=== PATIENT | male | born 1970 | race Caucasian/White ===

== ENCOUNTER 2018-12-03 06:12 | Outpatient (CLI) | payer BC ==
[~2018-12-03] VITALS: Ht 177.8 cm; Wt 81.2 kg
[2018-12-03] MEDS ORDERED: SILD100T PO (14:24)
[2018-12-03] MEDS ORDERED: COLE625T14 PO (14:24)
[2018-12-03] MEDS ORDERED: METF-399 PO (14:24)
[2018-12-03] MEDS ORDERED: LOSA25TA6 PO (14:24)
== END 2018-12-03 14:29 | disposition home or self-care (01) ==
LOC: PREOP 06:12 → EDUNIT# 12:30 → PREOP 14:29
PROVIDERS: ATTEND Surgery
DX: Z01.818 Encounter for other preprocedural examination (principal)

== ENCOUNTER 2018-12-06 06:09 | Day surgery (SDC) | payer BC ==
[~2018-12-06] VITALS: Ht 177.8 cm; Wt 81.2 kg
[~2018-12-06 06:09] MED LIST: COLE625T14 PO; LOSA25TA6 PO; METF-399 PO; SILD100T PO
--- OUTSIDE RECORDS SUMMARY | 2018-12-06 06:12 | XMS REPORT | CCD ---
Author Author Rosemary Rider Organization Rosemary Rider MD, [facility] Address [address] [place] [address] Phone Care Team Providers Care Assistant Professor Of Geography Name Role Phone PP Unavailable CCM Unavailable Summary Purpose Interface Exchange Insurance Providers Payer name Policy type / Coverage type Covered constitution party ID Effective Begin Date Effective End Date Blue Cross Blue [facility] Blue [employer] [facility] [id number] 2017 Unknown Family history Grandmother Diagnosis Age At Onset Diabetes mellitus Type 2 Unknown Brother Diagnosis Age At Onset No Known Diseases N/A Father Diagnosis Age At Onset Arthritis Unknown Mother Diagnosis Age At Onset Hypertension Unknown Diabetes mellitus Type 2 Unknown Social History Social History Element Codes Description Effective Dates Marital status Unknown Maria Alejandra 08/09/2018 Number of children Unknown 3 08/09/2018 Employment Unknown Currently employed Campus Safety Officer in [employer] 08/09/[address]: 361232699 Never smoker 08/09/[address]: 032466 Currently drinks alcohol 08/09/2018 Allergies, Adverse Reactions, Alerts Substance Reaction Codes Entered Date Inactivated Date Status NO KNOWN DRUG ALLERGIES Unknown 08/09/2018 No Inactive Date Active Past Medical History Illness Codes Condition Status Onset Date Resolved Date Male erectile disorder ICD-9: 302.72 ICD-10: F52.21 Active 08/09/2018 Unknown Sebaceous cyst ICD-9: 706.2 ICD-10: L72.3 Active 10/25/2018 Unknown Type 2 diabetes mellitus with hyperglycemia ICD-9: 250.02 ICD-10: E11.65 Active 09/13/2018 Unknown Encounter for general adult medical examination with abnormal findings ICD-9: V70.0 ICD-10: Z00.01 Active 08/09/2018 Unknown Impaired fasting glucose ICD-9: 790.29 ICD-10: R73.01 Active 08/09/2018 Unknown Problems Condition Codes Effective Dates Condition Status Male erectile disorder ICD-9: 302.72 ICD-10: F52.21 08/09/2018 Active Sebaceous cyst ICD-9: 706.2 ICD-10: L72.3 10/25/2018 Active Type 2 diabetes mellitus with hyperglycemia ICD-9: 250.02 ICD-10: E11.65 09/13/2018 Active Encounter for general adult medical examination with abnormal findings ICD-9: V70.0 ICD-10: Z00.01 08/09/2018 Active Impaired fasting glucose ICD-9: 790.29 ICD-10: R73.01 08/09/2018 Active Medications Medication Codes Instructions Start Date Stop Date Status Fill Instructions tadalafil 2.5 mg tablet RxNorm: 851443 1 Tablet(s) PO QAM 10/2510/25/2018 Inactive losartan 25 mg tablet RxNorm: 429303 1 Tablet(s) PO daily 201701/17/2020 Active sildenafil 100 mg tablet RxNorm: 865108 1/2-1 Tablet(s) PO UD prior to planned event 10/25/2018 11/23/2018 Active Ozempic 0.25 mg or 0.5 mg (2 mg/1.5 mL) subcutaneous pen injector RxNorm: 1061984 0.5 Milligram(s) SQ QW 10/25/20182018 Active metformin 1,000 mg tablet RxNorm: 793530 1/2 Tablet(s) PO BID x 1 week then increase to 1 Tablet PO BID thereafter 10/25/2018 10/19/2019 Active sildenafil 100 mg tablet RxNorm: 816032 1/2-1 Tablet(s) PO UD prior to planned event 10/25/2018 10/24/2018 Inactive Ozempic 0.25 mg or 0.5 mg (2 mg/1.5 mL) subcutaneous pen injector RxNorm: 4328221 0.25 Milligram(s) SQ QW 09/13/201810/24 Inactive WelChol 625 mg tablet RxNorm: 076993 3 Tablet(s) PO BID 201712/13/2018 Active losartan 25 mg tablet RxNorm: 195375 1 Tablet(s) PO daily 201708/15/2018 Inactive metformin 1,000 mg tablet RxNorm: 615226 1/2 Tablet(s) PO BID x 1 week then increase to 1 Tablet PO BID thereafter 08/16/2018 08/15/2018 Inactive losartan 25 mg tablet RxNorm: 267355 1 Tablet(s) PO daily 201710/24/2018 Inactive WelChol 625 mg tablet RxNorm: 750678 3 Tablet(s) PO BID 201708/15/2018 Inactive metformin 1,000 mg tablet RxNorm: 767190 1/2 Tablet(s) PO BID x 1 week then increase to 1 Tablet PO BID thereafter 08/16/2018 10/24/2018 Inactive Medication Administered No Medication Administered data Immunizations No Immunization data Assessments Condition Codes Effective Dates Type 2 diabetes mellitus with hyperglycemia ICD-10: E11.65 ICD-9: 250.02 10/25/2018 Male erectile disorder ICD-10: F52.21 ICD-9: 302.72 10/25/2018 Sebaceous cyst ICD-10: L72.3 ICD-9: 706.2 10/25/2018 Encounter for general adult medical examination with abnormal findings ICD-10: Z00.01 ICD-9: V70.0 08/09/2018 Impaired fasting glucose ICD-10: R73.01 ICD-9: 790.29 08/09/2018 Reason For Visit Reason For Visit Effective Dates Notes hypertension 10/25/2018 hypertension 09/13/2018 hypertension 08/09/2018 Results Observation Observation Code Item Item Code Result Date Testosterone Free Direct 946650 FREE TESTOSTERONE 10.0 pg/mL 08/15/2018 %Hba1C Obq331 % HbA1c 41361-1 13.8 % 08/10/2018 %Hba1C Ref946 Gluc Ave 349 mg/dL 08/10/2018 Cbc With Differential Ord2 WBC 6.36 K/ul 08/10/2018 Cbc With Differential Ord2 RBC 5.69 M/ul 08/10/2018 Cbc With Differential Ord2 HGB 17.0 g/dl 08/10/2018 Cbc With Differential Ord2 HCT 46.2 % 08/10/2018 Cbc With Differential Ord2 Neut% 48.6 % 08/10/2018 Cbc With Differential Ord2 MCV 81.2 fl 08/10/2018 Cbc With Differential Ord2 Lymph% 36.5 % 08/10/2018 Cbc With Differential Ord2 MCH 29.9 pg 08/10/2018 Cbc With Differential Ord2 Garrett% 11.0 % 08/10/2018 Cbc With Differential Ord2 MCHC 36.8 pg 08/10/2018 Cbc With Differential Ord2 Eos% 3.3 % 08/10/2018 Cbc With Differential Ord2 PLT 266 K/ul 08/10/2018 Cbc With Differential Ord2 Baso% 0.6 % 08/10/2018 Cbc With Differential Ord2 RDW 13.0 % 08/10/2018 Cbc With Differential Ord2 Neut ABS# 3.09 K/ul 08/10/2018 Cbc With Differential Ord2 Lymph ABS# 2.32 K/ul 08/10/2018 Cbc With Differential Ord2 Garrett ABS# 0.7 K/ul 08/10/2018 Cbc With Differential Ord2 Eos ABS# 0.2 K/ul 08/10/2018 Cbc With Differential Ord2 Baso ABS# 0.0 K/ul 08/10/2018 Microalbumin Cwb492 MicroAlb <0.7 mg/dL 08/10/2018 Lipid Ord30 CHOL 194 mg/dL 08/10/2018 Lipid Ord30 HDL 31.0 mg/dl 08/10/2018 Lipid Ord30 TRIG 292 mg/dL 08/10/2018 Lipid Ord30 LDL 105 mg/dL 08/10/2018 Lipid Ord30 C/HDL 6.3 Ratio 08/10/2018 Comp Metabolic Fvv915 NA 133 mEq/L 08/10/2018 Comp Metabolic Zkv632 K 4.3 mEq/L 08/10/2018 Comp Metabolic Ikl638 CL 99 mEq/L 08/10/2018 Comp Metabolic Lyp156 CO2 27.0 mEq/L 08/10/2018 Comp Metabolic Pnb659 ANION GAP 11 08/10/2018 Comp Metabolic Zvb491 GLUCOSE 363 mg/dL 08/10/2018 Comp Metabolic Bwo594 Creat 1.0 mg/dL 08/10/2018 Comp Metabolic Zck293 eGFR 91 ml/min/1.73m2 08/10/2018 Comp Metabolic Afv695 BUN 11 mg/dL 08/10/2018 Comp Metabolic Lts156 B/C Ratio 11.6 Ratio 08/10/2018 Comp Metabolic Yvd194 CALCIUM 9.3 mg/dL 08/10/2018 Comp Metabolic Jgv444 ALK PHOS 63 U/L 08/10/2018 Comp Metabolic Hmg682 AST(SGOT) 22 U/L 08/10/2018 Comp Metabolic Rpb423 ALT(SGPT) 23 U/L 08/10/2018 Comp Metabolic Kyr460 BILI T 1.2 mg/dL 08/10/2018 Comp Metabolic Zai724 ALBUMIN 4.3 g/dL 08/10/2018 Comp Metabolic Bdy300 TPRO 6.9 g/dL 08/10/2018 Comp Metabolic Klz210 GLOB 2.6 g/dL 08/10/2018 Comp Metabolic Gip244 A/G Ratio 1.6 Ratio 08/10/2018 Comp Metabolic Jox383 Osmo 280 mOsmo 08/10/2018 Tsh Ord6 TSH (3rd IS) 1.61 uIU/mL 08/10/2018 Review of Systems System Result Effective Dates Constitutional weight loss 10/25/2018 Gastrointestinal No constipation 2017 Gastrointestinal No diarrhea 10/25/2018 Constitutional No recent illness 2017 Constitutional No chills 10/25/2018 Constitutional No fatigue 10/25/2018 Constitutional No fever 10/25/2018 Constitutional No insomnia 10/25/2018 Constitutional No malaise 10/25/2018 Ears/Nose/Throat/Neck No dizziness 2017 Ears/Nose/Throat/Neck No headache 2017 Ears/Nose/Throat/Neck No hearing loss 04/2018 Cardiovascular No dyspnea 10/25/2018 Cardiovascular No edema 10/25/2018 Cardiovascular No fatigue 10/25/2018 Respiratory No chest tightness 2017 Respiratory No cough 10/25/2018 Respiratory No dyspnea 10/25/2018 Respiratory No pedal edema 10/25/2018 Gastrointestinal No abdominal pain 2017 Gastrointestinal No gastroesophageal reflux 10/25/2018 Gastrointestinal No nausea 10/25/2018 Gastrointestinal No vomiting 10/25/2018 Genitourinary/Nephrology No dysuria 10/25 Genitourinary/Nephrology No nocturia 04/2018 Genitourinary/Nephrology No urinary incontinence 10/25/2018 Dermatologic No rash 10/25/2018 Dermatologic No sores 10/25/2018 Neurologic No dizziness 10/25/2018 Neurologic No headache 10/25/2018 Neurologic No syncope 10/25/2018 Psychiatric No anxiety 10/25/2018 Psychiatric No depression 10/25/2018 Genitourinary/Nephrology impotence 2017 Constitutional No recent illness 2017 Constitutional No chills 09/13/2018 Constitutional No fatigue 09/13/2018 Constitutional No fever 09/13/2018 Constitutional No insomnia 09/13/2018 Constitutional No malaise 09/13/2018 Ears/Nose/Throat/Neck No dizziness 2017 Ears/Nose/Throat/Neck No headache 2017 Ears/Nose/Throat/Neck No hearing loss Cardiovascular No dyspnea 09/13/2018 Cardiovascular No edema 09/13/2018 Cardiovascular No fatigue 09/13/2018 Respiratory No chest tightness 2017 Respiratory No cough 09/13/2018 Respiratory No dyspnea 09/13/2018 Respiratory No pedal edema 09/13/2018 Gastrointestinal No abdominal pain 2017 Gastrointestinal No constipation 2017 Gastrointestinal No diarrhea 09/13/2018 Gastrointestinal No gastroesophageal reflux 09/13/2018 Gastrointestinal No nausea 09/13/2018 Gastrointestinal No vomiting 09/13/2018 Genitourinary/Nephrology No dysuria 09/13 Genitourinary/Nephrology No nocturia Genitourinary/Nephrology No urinary incontinence 09/13/2018 Dermatologic No rash 09/13/2018 Dermatologic No sores 09/13/2018 Neurologic No dizziness 09/13/2018 Neurologic No headache 09/13/2018 Neurologic No syncope 09/13/2018 Psychiatric No anxiety 09/13/2018 Psychiatric No depression 09/13/2018 Constitutional No recent illness 2017 Constitutional No chills 08/09/2018 Constitutional No fatigue 08/09/2018 Constitutional No fever 08/09/2018 Constitutional No insomnia 08/09/2018 Constitutional No malaise 08/09/2018 Eyes No vision change 08/09/2018 Ears/Nose/Throat/Neck No dental pain Ears/Nose/Throat/Neck No dizziness 2017 Ears/Nose/Throat/Neck No dysphagia 2017 Ears/Nose/Throat/Neck No headache 2017 Ears/Nose/Throat/Neck No hearing loss Ears/Nose/Throat/Neck No nasal allergies 08/09/2018 Ears/Nose/Throat/Neck No sore throat Ears/Nose/Throat/Neck No postnasal drip 08/09/2018 Ears/Nose/Throat/Neck No sinus congestion 08/09/2018 Cardiovascular No chest pain/pressure Cardiovascular No dyspnea 08/09/2018 Cardiovascular No edema 08/09/2018 Cardiovascular No exercise intolerance Cardiovascular No fatigue 08/09/2018 Cardiovascular No near-syncope/dizziness 08/09/2018 Respiratory No chest tightness 2017 Respiratory No cough 08/09/2018 Respiratory No dyspnea 08/09/2018 Respiratory No pedal edema 08/09/2018 Gastrointestinal No abdominal pain 2017 Gastrointestinal No constipation 2017 Gastrointestinal No diarrhea 08/09/2018 Gastrointestinal No gastroesophageal reflux 08/09/2018 Gastrointestinal No nausea 08/09/2018 Gastrointestinal No vomiting 08/09/2018 Genitourinary/Nephrology No dysuria 08/09 Genitourinary/Nephrology No nocturia Genitourinary/Nephrology No urinary incontinence 08/09/2018 Musculoskeletal No stiffness 08/09/2018 Musculoskeletal No swelling 08/09/2018 Musculoskeletal No muscle weakness 2017 Musculoskeletal No myalgias 08/09/2018 Dermatologic No rash 08/09/2018 Dermatologic No sores 08/09/2018 Neurologic No dizziness 08/09/2018 Neurologic No headache 08/09/2018 Neurologic No neck pain 08/09/2018 Neurologic No syncope 08/09/2018 Psychiatric No anxiety 08/09/2018 Psychiatric No depression 08/09/2018 Physical Exam Exam Name System Name Item Name Status Result Effective Dates Notes Full Exam - General 1994 Constitutional general appearance Development: well developed 10/25/2018 None Full Exam - General 1994 Constitutional general appearance Development: appears stated age 1210/25/2018 None Full Exam - General 1994 Constitutional general appearance Hygiene/Attention to Grooming: good hygiene 10/25/2018 None Full Exam - General 1994 Eyes conjunctiva /eyelids Overall: conjunctiva clear 10/25/2018 None Full Exam - General 1994 Eyes conjunctiva /eyelids Overall: cornea clear 10/25/2018 None Full Exam - General 1994 Eyes conjunctiva /eyelids Overall: eyelids normal 10/25/2018 None Full Exam - General 1994 Eyes pupils and irises Overall: pupils equal, round, reactive to light and accomodation 10/25/2018 None Full Exam - General 1994 Ears/Nose/Throat otoscopic exam Overall: external auditory canals clear 10/25/2018 None Full Exam - General 1994 Ears/Nose/Throat otoscopic exam Overall: tympanic membranes clear 10/25/2018 None Full Exam - General 1994 Ears/Nose/Throat lips/teeth/gingiva Overall: benign lips 10/25/2018 None Full Exam - General 1994 Ears/Nose/Throat lips/teeth/gingiva Overall: normal dentition 10/25/2018 None Full Exam - General 1994 Ears/Nose/Throat oral cavity/pharynx/larynx Overall: oral mucosa clear 10/25/2018 None Full Exam - General 1994 Ears/Nose/Throat oral cavity/pharynx/larynx Overall: oropharyngeal mucosa clear 10/25/2018 None Full Exam - General 1994 Ears/Nose/Throat oral cavity/pharynx/larynx Overall: hypopharynx benign 10/25/2018 None Full Exam - General 1994 Ears/Nose/Throat oral cavity/pharynx/larynx Overall: no masses 10/25/2018 None Full Exam - General 1994 Respiratory auscultation Overall: breath sounds clear bilaterally 10/25/2018 None Full Exam - General 1994 Respiratory respiratory effort/rhythm Overall: no retractions 10/25/2018 None Full Exam - General 1994 Respiratory respiratory effort/rhythm Overall: normal rate 10/25/2018 None Full Exam - General 1994 Cardiovascular extremities Overall: no clubbing 10/25/2018 None Full Exam - General 1994 Cardiovascular auscultation of heart Overall: regular rate 10/25/2018 None Full Exam - General 1994 Cardiovascular auscultation of heart Overall: normal heart sounds 10/25/2018 None Full Exam - General 1994 Musculoskeletal spine, ribs and pelvis Overall: good posture 10/25/2018 None Full Exam - General 1994 Musculoskeletal head and neck Overall: head atraumatic 10/25/2018 None Full Exam - General 1994 Musculoskeletal head and neck Overall: cervical spine benign 10/25/2018 None Full Exam - General 1994 Neurologic cranial nerves Overall: crainial nerves 2 - 12 grossly intact 10/25/2018 None Full Exam - General 1994 Psychiatric orientation/consciousness Overall: oriented to person, place and time 10/25/2018 None Full Exam - General 1994 Psychiatric mood and affect Overall: normal mood and affect 10/25/2018 None Full Exam - General 1994 Integument inspection of skin Location: scalp 10/25/2018 nodule on right side on top of head Full Exam - General 1994 Constitutional general appearance Development: well developed 09/13/2018 None Full Exam - General 1994 Constitutional general appearance Development: appears stated age 1009/13/2018 None Full Exam - General 1994 Constitutional general appearance Hygiene/Attention to Grooming: good hygiene 09/13/2018 None Full Exam - General 1994 Eyes conjunctiva /eyelids Overall: conjunctiva clear 09/13/2018 None Full Exam - General 1994 Eyes conjunctiva /eyelids Overall: cornea clear 09/13/2018 None Full Exam - General 1994 Eyes conjunctiva /eyelids Overall: eyelids normal 09/13/2018 None Full Exam - General 1994 Eyes pupils and irises Overall: pupils equal, round, reactive to light and accomodation 09/13/2018 None Full Exam - General 1994 Ears/Nose/Throat otoscopic exam Overall: external auditory canals clear 09/13/2018 None Full Exam - General 1994 Ears/Nose/Throat otoscopic exam Overall: tympanic membranes clear 09/13/2018 None Full Exam - General 1994 Ears/Nose/Throat lips/teeth/gingiva Overall: benign lips 09/13/2018 None Full Exam - General 1994 Ears/Nose/Throat lips/teeth/gingiva Overall: normal dentition 09/13/2018 None Full Exam - General 1994 Ears/Nose/Throat oral cavity/pharynx/larynx Overall: oral mucosa clear 09/13/2018 None Full Exam - General 1994 Ears/Nose/Throat oral cavity/pharynx/larynx Overall: oropharyngeal mucosa clear 09/13/2018 None Full Exam - General 1994 Ears/Nose/Throat oral cavity/pharynx/larynx Overall: hypopharynx benign 09/13/2018 None Full Exam - General 1994 Ears/Nose/Throat oral cavity/pharynx/larynx Overall: no masses 09/13/2018 None Full Exam - General 1994 Respiratory auscultation Overall: breath sounds clear bilaterally 09/13/2018 None Full Exam - General 1994 Respiratory respiratory effort/rhythm Overall: no retractions 09/13/2018 None Full Exam - General 1994 Respiratory respiratory effort/rhythm Overall: normal rate 09/13/2018 None Full Exam - General 1994 Cardiovascular extremities Overall: no clubbing 09/13/2018 None Full Exam - General 1994 Cardiovascular auscultation of heart Overall: regular rate 09/13/2018 None Full Exam - General 1994 Cardiovascular auscultation of heart Overall: normal heart sounds 09/13/2018 None Full Exam - General 1994 Musculoskeletal spine, ribs and pelvis Overall: good posture 09/13/2018 None Full Exam - General 1994 Musculoskeletal head and neck Overall: head atraumatic 09/13/2018 None Full Exam - General 1994 Musculoskeletal head and neck Overall: cervical spine benign 09/13/2018 None Full Exam - General 1994 Neurologic cranial nerves Overall: crainial nerves 2 - 12 grossly intact 09/13/2018 None Full Exam - General 1994 Psychiatric orientation/consciousness Overall: oriented to person, place and time 09/13/2018 None Full Exam - General 1994 Psychiatric mood and affect Overall: normal mood and affect 09/13/2018 None Full Exam - General 1994 Constitutional general appearance Development: well developed 08/09/2018 None Full Exam - General 1994 Constitutional general appearance Development: appears stated age 0908/09/2018 None Full Exam - General 1994 Constitutional general appearance Hygiene/Attention to Grooming: good hygiene 08/09/2018 None Full Exam - General 1994 Eyes conjunctiva /eyelids Overall: conjunctiva clear 08/09/2018 None Full Exam - General 1994 Eyes conjunctiva /eyelids Overall: cornea clear 08/09/2018 None Full Exam - General 1994 Eyes conjunctiva /eyelids Overall: eyelids normal 08/09/2018 None Full Exam - General 1994 Eyes pupils and irises Overall: pupils equal, round, reactive to light and accomodation 08/09/2018 None Full Exam - General 1994 Ears/Nose/Throat otoscopic exam Overall: external auditory canals clear 08/09/2018 None Full Exam - General 1994 Ears/Nose/Throat otoscopic exam Overall: tympanic membranes clear 08/09/2018 None Full Exam - General 1994 Ears/Nose/Throat lips/teeth/gingiva Overall: benign lips 08/09/2018 None Full Exam - General 1994 Ears/Nose/Throat lips/teeth/gingiva Overall: normal dentition 08/09/2018 None Full Exam - General 1994 Ears/Nose/Throat oral cavity/pharynx/larynx Overall: oral mucosa clear 08/09/2018 None Full Exam - General 1994 Ears/Nose/Throat oral cavity/pharynx/larynx Overall: oropharyngeal mucosa clear 08/09/2018 None Full Exam - General 1994 Ears/Nose/Throat oral cavity/pharynx/larynx Overall: hypopharynx benign 08/09/2018 None Full Exam - General 1994 Ears/Nose/Throat oral cavity/pharynx/larynx Overall: no masses 08/09/2018 None Full Exam - General 1994 Respiratory auscultation Overall: breath sounds clear bilaterally 08/09/2018 None Full Exam - General 1994 Respiratory respiratory effort/rhythm Overall: no retractions 08/09/2018 None Full Exam - General 1994 Respiratory respiratory effort/rhythm Overall: normal rate 08/09/2018 None Full Exam - General 1994 Cardiovascular extremities Overall: no clubbing 08/09/2018 None Full Exam - General 1994 Cardiovascular auscultation of heart Overall: regular rate 08/09/2018 None Full Exam - General 1994 Cardiovascular auscultation of heart Overall: normal heart sounds 08/09/2018 None Full Exam - General 1994 Abdomen abdominal exam Overall: no tenderness 08/09/2018 None Full Exam - General 1994 Abdomen abdominal exam Overall: normal bowel sounds 08/09/2018 None Full Exam - General 1994 Lymphatic neck nodes Overall: anterior cervical chain benign 08/09/2018 None Full Exam - General 1994 Lymphatic neck nodes Overall: posterior cervical chain benign 08/09/2018 None Full Exam - General 1994 Musculoskeletal spine, ribs and pelvis Overall: spine benign 08/09/2018 None Full Exam - General 1994 Musculoskeletal spine, ribs and pelvis Overall: sacroiliac joint benign 08/09/2018 None Full Exam - General 1994 Musculoskeletal spine, ribs and pelvis Overall: good posture 08/09/2018 None Full Exam - General 1994 Musculoskeletal head and neck Overall: head atraumatic 08/09/2018 None Full Exam - General 1994 Musculoskeletal head and neck Overall: cervical spine benign 08/09/2018 None Full Exam - General 1994 Integument inspection of skin Overall: few scattered moles, no gross abnormalities 08/09/2018 None Full Exam - General 1994 Neurologic deep tendon reflexes Overall: deep tendon reflexes intact 08/09/2018 None Full Exam - General 1994 Neurologic cranial nerves Overall: crainial nerves 2 - 12 grossly intact 08/09/2018 None Full Exam - General 1994 Psychiatric orientation/consciousness Overall: oriented to person, place and time 08/09/2018 None Full Exam - General 1994 Psychiatric mood and affect Overall: normal mood and affect 08/09/2018 None Full Exam - General 1994 Neurologic sensation Touch: (specify location of deficit): vibration no sensation on great toe on right, 10 seconds on left great toe, normal sensation at right medial malleoli, and 12 seconds on left medial malleoli, lateral on right is normal, left lateral is normal as well. 08/09/2018 None Full Exam - General 1994 Ears/Nose/Throat external ear Auricle: cosmetic deformity 08/09/2018 None Procedures No Procedures data Vital Signs Date Vital 10/25/2018 Blood Pressure 1: 126/74 Code : 8480-6 BMI: 25.1 Code : 64268-2 Heart Rate 1 : 79 bpm Height: 5'10" SpO2: 99% Weight: 175 lbs 09/13/2018 Blood Pressure 1: 138/76 Code : 8480-6 BMI: 26.3 Code : 60839-8 Heart Rate 1 : 90 bpm Height: 5'10" SpO2: 98% Weight: 183 lbs 08/09/2018 Blood Pressure 1: 132/84 Code : 8480-6 BMI: 25.3 Code : 53904-7 Heart Rate 1 : 94 bpm Height: 5'10" SpO2: 97% Weight: 176 lbs Functional Status No Functional Status data History of Present Illness Symptom Name Status Result Effective Date Notes Quality intermittent 10/25/2018 None Onset and Resolution sudden in onset 10/25/2018 None Onset of Symptom 1 years ago 10/25/2018 None Quality decreased libido 10/25/2018 None Onset and Resolution gradual in onset 10/25/2018 None Onset of Symptom 1 years ago 10/25/2018 None Onset of Symptom onset as an adult 10/25/2018 None Onset of Symptom 9 years ago 10/25/2018 None Nutrition regular diet 10/25/2018 None Pertinent Findings tingling 10/25/2018 in toes - sometimes burning up to his knees hypertension Quality intermittent 09/13/2018 None hypertension Onset and Resolution sudden in onset 09/13/2018 None hypertension Onset of Symptom 1 years ago 09/13/2018 None sexual dysfunction Quality decreased libido 09/13/2018 None sexual dysfunction Onset and Resolution gradual in onset 09/13/2018 None sexual dysfunction Onset of Symptom 1 years ago 09/13/2018 None diabetes mellitus Onset of Symptom onset as an adult 09/13/2018 None diabetes mellitus Onset of Symptom 9 years ago 09/13/2018 None diabetes mellitus Nutrition regular diet 09/13/2018 None diabetes mellitus Pertinent Findings tingling 09/13/2018 in toes - sometimes burning up to his knees hypertension Quality intermittent 08/09/2018 None hypertension Onset and Resolution sudden in onset 08/09/2018 None hypertension Onset of Symptom 1 years ago 08/09/2018 None sexual dysfunction Quality decreased libido 08/09/2018 None sexual dysfunction Onset of Symptom 1 years ago 08/09/2018 None sexual dysfunction Onset and Resolution gradual in onset 08/09/2018 None diabetes mellitus Onset of Symptom onset as an adult 08/09/2018 None diabetes mellitus Onset of Symptom 9 years ago 08/09/2018 None diabetes mellitus Nutrition regular diet 08/09/2018 None diabetes mellitus Exercise minimal exercise 08/09/2018 None diabetes mellitus Test results Pt checking blood glucose readings, did not bring results to clinic 08/09/2018 he states that it has been over 400 - a few months ago - most recently it has been around 150's when he really works to try to get his blood glucose controlled. diabetes mellitus Pertinent Findings tingling 08/09/2018 in toes - sometimes burning up to his knees Advance Directives No Advance Directive data Encounters Encounter Performer Location Codes Date ([id number]) 53356 EST. PATIENT, LEVEL IV Diagnosis: Type 2 diabetes mellitus with hyperglycemia[ICD10: E11.65] Diagnosis: Male erectile disorder[ICD10: F52.21] Diagnosis: Sebaceous cyst[ICD10: L72.3] Rosemary Rider MD, [facility] CPT- 4: 02636 10/25/2018 ([id number]) 03616 EST. PATIENT, LEVEL IV Diagnosis: Type 2 diabetes mellitus with hyperglycemia[ICD10: E11.65] Rosemary Rider MD , [facility] CPT-4: 84341 09/13/2018 ([id number]) PREV VISIT NEW AGE 40-64 Diagnosis: Encounter for general adult medical examination with abnormal findings[ICD10: Z00.01] Rosemary Rider MD, [facility] CPT-4: 12629 08/09/2018 Plan of Care Planned Activity Notes Codes Status Date Visit Plan: Diabetes Mellitus - improved control- per recent FSBS reports. I have recommended for the patient to have follow up labs prior to the next office visit. The patient has been instructed to continue with current medications as previously directed, continue with regular FSBS monitoring to assure continued control of diabetes. Pt to call for any acute concerns, complaints, or if the blood glucose readings are starting to become less controlled. Sebaceous cyst on right scalp - recommended Referral to general surgery for evaluation/excision of growth on scalp. Erectile disorder - rx for cialis 2.5mg daily - if unable to get this rx filled, then will order viagra 100mg 1/2 - 1 tablet at time of planned intercourse. 10/25/2018 Patient Education: Patient Medication Summary Completed 10/25/2018 Patient Education: Ozempic - 18+ Completed 10/25/2018 Patient Education: Diabetes Completed 10/25/2018 Care Plan: Referral Order SNOMED-CT : 026692220 Pending 10/25/2018 Appointment: Rosemary Rider WPtel: [phone] [facility] (15 min) Moderate 10/04/2018 Visit Plan: Diabetes Mellitus - Uncontrolled - per recent FSBS reports. I have recommended for the patient to have follow up labs prior to the next office visit. The patient has been instructed to continue with current medications as previously directed, continue with regular FSBS monitoring to assure continued control of diabetes. Pt to call for any acute concerns, complaints, or if the blood glucose readings are starting to become less controlled. I have recommended for the patient to follow more strictly to the diabetic diet as discussed in clinic to allow for greater blood glucose control. Pt started on Ozempic today - continue with metformin. 09/13/2018 Appointment: Rosemary Rider WPtel: [phone] [facility] (15 min) Moderate 09/13/2018 Patient Education: Patient Medication Summary Completed 09/13/2018 Patient Education: Diabetes Completed 09/13/2018 Visit Plan: Well Adult - pt was counseled about diet, exercise, and encouraged to follow a heart healthy diet and increase activity level. The patient was instructed to RTC yearly for well adult exams and PRN for acute illnesses. The pt was also instructed to have yearly labs for check of cholesterol, thyroid, chem panel, CBC, and renal functioning. Hx of DM - impaired glucose recently - recommended low carbohydrate diet and need for patient to have Hgba1c done - he will do so fasting tomorrow. Erectile dysfunction - recommended testosterone level. Antonio is to come back in a few months to review how he is doing after we make some recommendations on starting medication once we have his labs back. 08/09/2018 Appointment: [facility]el[facility] [phone] [facility] [facility] Patient 08/09/2018 Patient Education: Patient Medication Summary Completed 08/09/2018 Care Plan: COMPLETE CBC AUTOMATED LOINC : 99186-9 Pending 08/09/2018 Care Plan: MICROALBUMIN QUANTITATIVE LOINC : 05725-4 Pending 08/09/2018 Referral: Jakub Bowman WPtel:[phone] Referral Appointment Requested Instructions Comment . Diabetes Mellitus - improved control- per recent FSBS reports. I have recommended for the patient to have follow up labs prior to the next office visit. The patient has been instructed to continue with current medications as previously directed, continue with regular FSBS monitoring to assure continued control of diabetes. Pt to call for any acute concerns, complaints, or if the blood glucose readings are starting to become less controlled. Sebaceous cyst on right scalp - recommended Referral to general surgery for evaluation/excision of growth on scalp. Erectile disorder - rx for cialis 2.5mg daily - if unable to get this rx filled , then will order viagra 100mg 1/2 - 1 tablet at time of planned intercourse. . Well Adult - pt was counseled about diet, exercise, and encouraged to follow a heart healthy diet and increase activity level. The patient was instructed to RTC yearly for well adult exams and PRN for acute illnesses. The pt was also instructed to have yearly labs for check of cholesterol, thyroid, chem panel, CBC, and renal functioning. Hx of DM - impaired glucose recently - recommended low carbohydrate diet and need for patient to have Hgba1c done - he will do so fasting tomorrow. Erectile dysfunction - recommended testosterone level. Antonio is to come back in a few months to review how he is doing after we make some recommendations on starting medication once we have his labs back. . Diabetes Mellitus - Uncontrolled - per recent FSBS reports. I have recommended for the patient to have follow up labs prior to the next office visit. The patient has been instructed to continue with current medications as previously directed, continue with regular FSBS monitoring to assure continued control of diabetes. Pt to call for any acute concerns, complaints, or if the blood glucose readings are starting to become less controlled. I have recommended for the patient to follow more strictly to the diabetic diet as discussed in clinic to allow for greater blood glucose control. Pt started on Ozempic today - continue with metformin.
--- OUTSIDE RECORDS SUMMARY | 2018-12-06 06:13 | XMS REPORT | CCD ---
Author Author Rosemary Rider Organization Rosemary Rider MD, [facility] Address [address] [place] [address] Phone Care Team Providers Care Housing Development Specialist Name Role Phone PP Unavailable CCM Unavailable Summary Purpose Interface Exchange Insurance Providers Payer name Policy type / Coverage type Covered libertarian ID Effective Begin Date Effective End Date Blue Cross [facility] Blue Cross/[employer]ao [facility] [id number] 2017 Unknown Family history Grandmother Diagnosis Age [...] Unknown 3 08/09/2018 Employment Unknown Currently employed Commercial Lines Manager in [employer] 08/09/[address]: 677490103 Never smoker 08/09/[address]: 123892 Currently drinks alcohol 08/09/2018 Allergies, Adverse Reactions, Alerts Substance Reaction Codes Entered Date Inactivated Date Status NO KNOWN DRUG ALLERGIES Unknown 08/09/2018 No Inactive Date Active Past Medical History Illness Codes Condition Status Onset Date Resolved Date Type 2 diabetes mellitus with hyperglycemia ICD-9: 250.02 ICD-10: E11.65 Active 09/13/2018 Unknown Encounter for general adult medical examination with abnormal findings ICD-9: V70.0 ICD-10: Z00.01 Active 08/09/2018 Unknown Impaired fasting glucose ICD-9: 790.29 ICD-10: R73.01 Active 08/09/2018 Unknown Male erectile disorder ICD-9: 302.72 ICD-10: F52.21 Active 08/09/2018 Unknown Problems Condition Codes Effective Dates Condition Status Type 2 diabetes mellitus with hyperglycemia ICD-9: 250.02 ICD-10: E11.65 09/13/2018 Active Encounter for general adult medical examination with abnormal findings ICD-9: V70.0 ICD-10: Z00.01 08/09/2018 Active Impaired fasting glucose ICD-9: 790.29 ICD-10: R73.01 08/09/2018 Active Male erectile disorder ICD-9: 302.72 ICD-10: F52.21 08/09/2018 Active Medications Medication Codes Instructions Start Date Stop Date Status Fill Instructions Ozempic 0.25 mg or 0.5 mg (2 mg/1.5 mL) subcutaneous pen injector RxNorm: 4515955 0.25 Milligram(s) SQ QW 09/13/2018 No Stop Date Active losartan 25 mg tablet RxNorm: 062855 1 Tablet(s) PO daily 201712/13/2018 Active metformin 1,000 mg tablet RxNorm: 140726 1/2 Tablet(s) PO BID x 1 week then increase to 1 Tablet PO BID thereafter 08/16/2018 12/13/2018 Active WelChol 625 mg tablet RxNorm: 112785 3 Tablet(s) PO BID 201712/13/2018 Active losartan 25 mg tablet RxNorm: 778393 1 Tablet(s) PO daily 201708/15/2018 Inactive metformin 1,000 mg tablet RxNorm: 373705 1/2 Tablet(s) PO BID x 1 week then increase to 1 Tablet PO BID thereafter 08/16/2018 08/15/2018 Inactive WelChol 625 mg tablet RxNorm: 477779 3 Tablet(s) PO BID 201708/15/2018 Inactive Medication Administered No Medication Administered data Immunizations No Immunization data Assessments Condition Codes Effective Dates Type 2 diabetes mellitus with hyperglycemia ICD-10: E11.65 ICD-9: 250.02 09/13/2018 Male erectile disorder ICD-10: F52.21 ICD-9: 302.72 08/09/2018 Encounter for general adult medical examination with abnormal findings ICD-10: Z00.01 ICD-9: V70.0 08/09/2018 Impaired fasting glucose ICD-10: R73.01 ICD-9: 790.29 08/09/2018 Reason For Visit Reason For Visit Effective Dates Notes hypertension 09/13/2018 hypertension 08/09/2018 Results Observation Observation Code Item Item Code Result Date Testosterone Free Direct 150737 FREE TESTOSTERONE 10.0 pg/mL 08/15/2018 %Hba1C Elr265 % HbA1c 67017-1 13.8 % 08/10/2018 %Hba1C Klu088 Gluc Ave 349 mg/dL 08/10/2018 Cbc With Differential Ord2 WBC 6.36 K/ul 08/10/2018 Cbc With Differential Ord2 RBC 5.69 M/ul 08/10/2018 Cbc With Differential Ord2 HGB 17.0 g/dl 08/10/2018 Cbc With Differential Ord2 Neut% 48.6 % 08/10/2018 Cbc With Differential Ord2 HCT 46.2 % 08/10/2018 Cbc With Differential Ord2 MCV 81.2 fl 08/10/2018 Cbc With Differential Ord2 Lymph% 36.5 % 08/10/2018 Cbc With Differential Ord2 MCH 29.9 pg 08/10/2018 Cbc With Differential Ord2 [place]% 11.0 % 08/10/2018 Cbc With Differential Ord2 [...] 2.32 K/ul 08/10/2018 Cbc With Differential Ord2 [place] ABS# 0.7 K/ul 08/10/2018 Cbc With Differential Ord2 Eos ABS# 0.2 K/ul 08/10/2018 Cbc With Differential Ord2 Baso ABS# 0.0 K/ul 08/10/2018 Microalbumin Zjs991 MicroAlb <0.7 mg/dL 08/10/2018 Lipid Ord30 CHOL 194 mg/dL 08/10/2018 Lipid Ord30 HDL 31.0 mg/dl 08/10/2018 Lipid Ord30 TRIG 292 mg/dL 08/10/2018 Lipid Ord30 LDL 105 mg/dL 08/10/2018 Lipid Ord30 C/HDL 6.3 Ratio 08/10/2018 Comp Metabolic Czn423 NA 133 mEq/L 08/10/2018 Comp Metabolic Rqa539 K 4.3 mEq/L 08/10/2018 Comp Metabolic Ovx518 CL 99 mEq/L 08/10/2018 Comp Metabolic Lip030 CO2 27.0 mEq/L 08/10/2018 Comp Metabolic Uoh795 ANION GAP 11 08/10/2018 Comp Metabolic Nex880 GLUCOSE 363 mg/dL 08/10/2018 Comp Metabolic Nqi448 Creat 1.0 mg/dL 08/10/2018 Comp Metabolic Nes160 eGFR 91 ml/min/1.73m2 08/10/2018 Comp Metabolic Ukj439 BUN 11 mg/dL 08/10/2018 Comp Metabolic Eep778 B/C Ratio 11.6 Ratio 08/10/2018 Comp Metabolic Ujx599 CALCIUM 9.3 mg/dL 08/10/2018 Comp Metabolic Nvb667 ALK PHOS 63 U/L 08/10/2018 Comp Metabolic Eia704 AST(SGOT) 22 U/L 08/10/2018 Comp Metabolic Wyy896 ALT(SGPT) 23 U/L 08/10/2018 Comp Metabolic Juw633 BILI T 1.2 mg/dL 08/10/2018 Comp Metabolic Alz865 ALBUMIN 4.3 g/dL 08/10/2018 Comp Metabolic Ltr010 TPRO 6.9 g/dL 08/10/2018 Comp Metabolic Osi990 GLOB 2.6 g/dL 08/10/2018 Comp Metabolic Jis622 A/G Ratio 1.6 Ratio 08/10/2018 Comp Metabolic Gxh440 Osmo 280 mOsmo 08/10/2018 Tsh Ord6 TSH (3rd IS) 1.61 uIU/mL 08/10/2018 Review of Systems System Result Effective Dates Constitutional No recent illness 2017 Constitutional No [...] No Procedures data Vital Signs Date Vital 09/13/2018 Blood Pressure 1: 138/76 Code : 8480-6 BMI: 26.3 Code : 50823-1 Heart Rate 1 : 90 bpm Height: 5'10" SpO2: 98% Weight: 183 lbs 08/09/2018 Blood Pressure 1: 132/84 Code : 8480-6 BMI: 25.3 Code : 71308-2 Heart Rate 1 : 94 bpm Height: 5'10" SpO2: 97% Weight: 176 lbs Functional Status No Functional Status data History of Present Illness Symptom Name Status Result Effective Date Notes hypertension Quality intermittent 09/13/2018 None hypertension Onset [...] data Encounters Encounter Performer Location Codes Date [phone]) 37418 EST. PATIENT, LEVEL IV Diagnosis: Type 2 diabetes mellitus with hyperglycemia[ICD10: E11.65] [facility] CPT-4: 57215 09/13/2018 (28741) PREV VISIT NEW AGE 40-64 Diagnosis: Encounter for general adult medical examination with abnormal findings[ICD10: Z00.01] Rosemary Rider MD, [facility] CPT-4: 41829 08/09/2018 Plan of Care Planned Activity Notes Codes Status Date Visit Plan: Diabetes Mellitus - Uncontrolled - [...] Ozempic today - continue with metformin. 09/13/2018 Patient Education: Patient Medication Summary Completed [...] we have his labs back. 08/09/2018 Appointment: [facility]mary [facility]el[facility] [phone] [facility] [place] New Patient 08/09/2018 Patient Education: Patient Medication Summary Completed 08/09/2018 Care Plan: COMPLETE CBC AUTOMATED LOINC : 70582-8 Pending 08/09/2018 Care Plan: MICROALBUMIN QUANTITATIVE LOINC : 69525-6 Pending 08/09/2018 Instructions Comment . Well Adult - pt was counseled [...]
--- OUTSIDE RECORDS SUMMARY | 2018-12-06 06:13 | XMS REPORT | CCD ---
Author Author Rosemary Rider Organization Rosemray Rider MD, [facility] Address [address] [place] [address] Phone Care Team Providers Care Stick Inserter Name Role Phone PP Unavailable CCM Unavailable Summary Purpose Interface Exchange Insurance Providers Payer name Policy type / Coverage type Covered libertarian ID Effective Begin Date Effective End Date Blue Cross Blue [facility] Blue Cross/[employer] [facility] [id number] 2017 Unknown Family history Grandmother Diagnosis Age [...] Unknown 3 08/09/2018 Employment Unknown Currently employed Software Security Architect in [employer] 08/09/[address]: 171476162 Never smoker 08/09/[address]: 435186 Currently drinks alcohol 08/09/2018 Allergies, Adverse Reactions, [...] Fill Instructions tadalafil 2.5 mg tablet RxNorm: 553894 1 Tablet(s) PO QAM 10/2505/22/2019 Active losartan 25 mg tablet RxNorm: 953242 1 Tablet(s) PO daily 201701/17/2020 Active sildenafil 100 mg tablet RxNorm: 612056 1/2-1 Tablet(s) PO UD prior to planned event 10/25/2018 11/23/2018 Active Ozempic 0.25 mg or 0.5 mg (2 mg/1.5 mL) subcutaneous pen injector RxNorm: 9855496 0.5 Milligram(s) SQ QW 10/25/20182018 Active metformin 1,000 mg tablet RxNorm: 099464 1/2 Tablet(s) PO BID x 1 week then increase to 1 Tablet PO BID thereafter 10/25/2018 10/19/2019 Active sildenafil 100 mg tablet RxNorm: 597560 1/2-1 Tablet(s) PO UD prior to planned event 10/25/2018 10/24/2018 Inactive Ozempic 0.25 mg or 0.5 mg (2 mg/1.5 mL) subcutaneous pen injector RxNorm: 0874946 0.25 Milligram(s) SQ QW 09/13/201810/24 Inactive WelChol 625 mg tablet RxNorm: 038458 3 Tablet(s) PO BID 201712/13/2018 Active losartan 25 mg tablet RxNorm: 867500 1 Tablet(s) PO daily 201708/15/2018 Inactive metformin 1,000 mg tablet RxNorm: 003198 1/2 Tablet(s) PO BID x 1 week then increase to 1 Tablet PO BID thereafter 08/16/2018 08/15/2018 Inactive losartan 25 mg tablet RxNorm: 243341 1 Tablet(s) PO daily 201710/24/2018 Inactive WelChol 625 mg tablet RxNorm: 198107 3 Tablet(s) PO BID 201708/15/2018 Inactive metformin 1,000 mg tablet RxNorm: 272141 1/2 Tablet(s) PO BID x 1 week [...] Item Code Result Date Testosterone Free Direct 984941 FREE TESTOSTERONE 10.0 pg/mL 08/15/2018 %Hba1C Rxy281 % HbA1c 20404-7 13.8 % 08/10/2018 %Hba1C Peq265 Gluc Ave 349 mg/dL 08/10/2018 Cbc With [...] 29.9 pg 08/10/2018 Cbc With Differential Ord2 [place]% 11.0 % 08/10/2018 Cbc With Differential Ord2 [...] 2.32 K/ul 08/10/2018 Cbc With Differential Ord2 [place] ABS# 0.7 K/ul 08/10/2018 Cbc With Differential Ord2 Eos ABS# 0.2 K/ul 08/10/2018 Cbc With Differential Ord2 Baso ABS# 0.0 K/ul 08/10/2018 Microalbumin Lhr711 MicroAlb <0.7 mg/dL 08/10/2018 Lipid Ord30 CHOL 194 mg/dL 08/10/2018 Lipid Ord30 HDL 31.0 mg/dl 08/10/2018 Lipid Ord30 TRIG 292 mg/dL 08/10/2018 Lipid Ord30 LDL 105 mg/dL 08/10/2018 Lipid Ord30 C/HDL 6.3 Ratio 08/10/2018 Comp Metabolic Uhb469 NA 133 mEq/L 08/10/2018 Comp Metabolic Fbs869 K 4.3 mEq/L 08/10/2018 Comp Metabolic Suo469 CL 99 mEq/L 08/10/2018 Comp Metabolic Mwi539 CO2 27.0 mEq/L 08/10/2018 Comp Metabolic Kmb919 ANION GAP 11 08/10/2018 Comp Metabolic Zwf557 GLUCOSE 363 mg/dL 08/10/2018 Comp Metabolic Nnl488 Creat 1.0 mg/dL 08/10/2018 Comp Metabolic Rgv774 eGFR 91 ml/min/1.73m2 08/10/2018 Comp Metabolic Iqe164 BUN 11 mg/dL 08/10/2018 Comp Metabolic Xjd076 B/C Ratio 11.6 Ratio 08/10/2018 Comp Metabolic Djn266 CALCIUM 9.3 mg/dL 08/10/2018 Comp Metabolic Mhd184 ALK PHOS 63 U/L 08/10/2018 Comp Metabolic Udj406 AST(SGOT) 22 U/L 08/10/2018 Comp Metabolic Tkk919 ALT(SGPT) 23 U/L 08/10/2018 Comp Metabolic Uqt471 BILI T 1.2 mg/dL 08/10/2018 Comp Metabolic Pfv158 ALBUMIN 4.3 g/dL 08/10/2018 Comp Metabolic Plt190 TPRO 6.9 g/dL 08/10/2018 Comp Metabolic Ovf510 GLOB 2.6 g/dL 08/10/2018 Comp Metabolic Krq657 A/G Ratio 1.6 Ratio 08/10/2018 Comp Metabolic Tla215 Osmo 280 mOsmo 08/10/2018 Tsh Ord6 TSH [...] Code : 8480-6 BMI: 26.3 Code : 71240-0 Heart Rate 1 : 90 bpm Height: 5'10" SpO2: 98% Weight: 183 lbs 08/09/2018 Blood Pressure 1: 132/84 Code : 8480-6 BMI: 25.3 Code : 52656-4 Heart Rate 1 : 94 bpm Height: [...] data Encounters Encounter Performer Location Codes Date () 31398 EST. PATIENT, LEVEL IV Diagnosis: Type 2 diabetes mellitus with hyperglycemia[ICD10: E11.65] [facility] CPT-4: 74454 09/13/2018 (05134) PREV VISIT NEW AGE 40-64 Diagnosis: Encounter for general adult medical examination with abnormal findings[ICD10: Z00.01] [facility] CPT-4: 53500 08/09/2018 Plan of Care Planned Activity Notes Codes Status Date App[facility]ment: [phone] [facility] (15 min) Moderate 10/04/2018 Visit Plan: Diabetes [...] with metformin. 09/13/2018 Appointment: Rosemary Rider WPtel: [phone] [facility] (15 min) Moderate 09/13/2018 Patient Education: [...] labs back. 08/09/2018 Appointment: [facility]el[facility] [phone] [facility] New Patient 08/09/2018 Patient Education: Patient Medication Summary Completed 08/09/2018 Care Plan: COMPLETE CBC AUTOMATED LOINC : 40164-0 Pending 08/09/2018 Care Plan: MICROALBUMIN QUANTITATIVE LOINC : 80927-3 Pending 08/09/2018 Instructions Comment . Well Adult [...]
[2018-12-06] MEDS ORDERED: LACTATED RINGERS 1,000 ML IV PRN (06:29)
[2018-12-06] MEDS ORDERED: ceFAZolin INJECTION 1,000 MG in NS (IVPB) 50 ML IV ONE (06:30)
[2018-12-06 06:35] VITALS: BP 143/106
[2018-12-06] MEDS ORDERED: NS (IVPB) 50 ML ONE (06:36)
[2018-12-06] MEDS ORDERED: ceFAZolin 1,000 MG/10 ML (ANCEF) VIAL ONE (06:36)
[2018-12-06] MEDS ORDERED: fentaNYL INJECTION 100 MCG/2 ML AMP ONE (06:48)
[2018-12-06] MEDS ORDERED: proPOfol 200 MG/20 ML (DIPRIVAN) VIAL IV ONE (06:48)
[2018-12-06] MEDS ORDERED: LIDOCAINE PF 2% 5 ML (XYLOCAINE) VIAL ONE (06:48)
[2018-12-06] MEDS ORDERED: ONDANSETRON 4 MG/2 ML (SDV) Z0FRAN ONE (06:48)
[2018-12-06] MEDS ORDERED: MIDAZOLAM 2 MG/2 ML (VERSED) VIAL ONE (06:48)
[2018-12-06] MEDS ORDERED: SEVOFLURANE (ULTANE) 15 ML INHAL SOLN ONE ×3 (06:51→08:10)
[2018-12-06] MEDS ORDERED: LIDOCAINE 1% INJ 20 ML 20 ML VIAL ONE (07:01)
[2018-12-06] MEDS ORDERED: BUPIVACAINE 0.5% 30 ML (SENSORCAINE) VIAL ONE (07:01)
--- NOTE | 2018-12-06 07:54 | Progress Note-Pre Operative ---
Pre-Operative Progress Note H&P Reviewed The H&P was reviewed, patient examined and no changes noted. Date Seen by Provider: Dec 06, 2018 Time Seen by Provider: 07:53 Date H&P Reviewed: Dec 06, 2018 Time H&P Reviewed: 07:53 Pre-Operative Diagnosis: cyst head MARY JANE CODY DO Dec 06, 2018 07:54
--- NOTE | 2018-12-06 08:20 | Progress Note-Post Operative ---
Post-Operative Progess Note Surgeon (s)/Program Coordinator Executive Education (s) Surgeon MARY JANE CODY DO Program Coordinator Executive Education: na Pre-Operative Diagnosis cyst head Post-Operative Diagnosis same Procedure & Operative Findings Date of Procedure 12/06/18 Procedure Performed/Findings excision cyst of head 2.5 x 1 cm Anesthesia Type gen Estimated Blood Loss Estimated blood loss (mL): min Specimens/Packing Specimens Removed cyst head MARY JANE CODY DO Dec 06, 2018 08:20
--- NOTE | 2018-12-06 08:23 | Discharge Inst-Simple/Standard ---
Discharge Inst-Standard Patient Instructions/Follow Up Plan of Care/Instructions/FU: 12-14 days for suture removal - Gracie Activity as Tolerated: Yes Discharge Diet: Regular Diet Other Inst to Patient Follow up Appt: Make appointment for 12-14 days Instructions: May shower in 24 hours, no tub bath or soaking. Use incentive spirometer at home as directed. No Smoking Skin/Wound Care: May remove bandages in 24 hours, you have antibiotic cream over top use for 48 hours. Keep clean and dry. Symptoms to Report: Appetite Changes, Extremity Discoloration, Numbness/Tingling, Swelling Increased , Bleeding Excessive, Eyesight Changes, Pain Increased, Urine Color Change, Constipation(Persistent), Fever over 101 degree F, Pain/Pressure in chest, Urinating Difficulty, Cough Up/Vomit Blood, Heart Beat Irreg/Pounding, Pain/ Pressure in jaw, Vaginal Bleeding Increase, Cramps in feet or legs, Lightheadedness, Pain/Pressure in shoulder, Diarrhea(Persistent), Memory Changes Suddenly, Questions/Concerns, Weight gain consecutive days, Dizziness/ Fainting, Nausea/Vomiting, Shortness of Breath, Weight gain over 2 pounds If questions or concerns contact your physician Or seek help at emergency department. MARY JANE CODY DO Dec 06, 2018 08:23
[2018-12-06] MEDS ORDERED: morphine INJ 10 MG/ML 1ML (SYR OR VIAL) IVP ONE (08:45)
[2018-12-06] MEDS ORDERED: ONDANSETRON 4 MG/2 ML (SDV) Z0FRAN IVP PRN (08:45)
[2018-12-06] MEDS ORDERED: fentaNYL INJECTION 100 MCG/2 ML AMP IVP ONE (08:45)
[2018-12-06 09:25] VITALS: BP 127/104
--- NOTE | 2018-12-06 09:45 | OPERATIVE REPORT ---
DATE OF SERVICE: 12/06/2018 PREOPERATIVE DIAGNOSIS: Cyst of head. POSTOPERATIVE DIAGNOSIS: Cyst of head. PROCEDURE: Excision of cyst of head, 2 x 1.5 cm. SURGEON: Mary Jane Bowman DO ANESTHESIA: General. ESTIMATED BLOOD LOSS: Minimal. COMPLICATIONS: None. INDICATIONS: The patient is a 48-year-old male with a cyst on the top of the head that is continuing to increase in size. He understands the risks and benefits of procedure and wished to proceed with procedure. Consent was signed in the chart. PROCEDURE IN DETAIL: The patient was taken to the operating suite. He was prepped and draped in sterile fashion. Timeout was performed. Local anesthetic was used to infiltrate around the area. A 15 blade scalpel was used to make a skin incision and the [place] were used to dissect around the cyst. It was then delivered through the incision in its entirety. Copious amount of irrigation was used to irrigate the wound. The skin had some of the redundancy removed and then the skin was then closed using 3-0 nylon in a simple running fashion. The patient then had the area washed and dried and sterile bandage was applied. The patient tolerated the procedure well without complications. He was taken to the recovery room in stable condition. Job ID: [id number] DocumentID: [id number] Dictated Date: 12/06/2018 08:25:44 Red Hat Engineer Date: 12/06/2018 09:44:28 Dictated By: MARY JANE BOWMAN DO
[2018-12-06 09:55] VITALS: BP 126/96
--- NOTE | 2018-12-06 11:11 | Anesthesia-General Post-Op ---
General Patient Condition Mental Status/LOC: Same as Preop Cardiovascular: Satisfactory Nausea/Vomiting: Absent Respiratory: Satisfactory Pain: Controlled Complications: Absent Post Op Complications Complications None Follow Up Care/Instructions Patient Instructions None needed. Anesthesia/Patient Condition Patient Condition Patient is doing well, no complaints, stable vital signs, no apparent adverse anesthesia problems. No complications reported per nursing. KAYLEEN PETTIT CRNA Dec 06, 2018 11:11
== END 2018-12-06 10:05 | disposition home or self-care (01) ==
LOC: SDC 06:09
PROVIDERS: ATTEND Surgery
DX: L72.12 Trichodermal cyst (principal); E11.9 Type 2 diabetes mellitus without complications; I10 Essential (primary) hypertension; Z79.84 Long term (current) use of oral hypoglycemic drugs; Z79.899 Other long term (current) drug therapy
CPT/HCPCS: 82962; 87081